=== PATIENT | female | born 1990 | race Caucasian/White ===

== ENCOUNTER 2019-02-22 07:35 | Outpatient (CLI) | payer BC ==
[2019-02-22] MEDS ORDERED: BARIUM SULFATE 340 GM ONE (10:51)
== END 2019-02-22 23:59 | disposition home or self-care (01) ==
LOC: RAD 07:35
DX: K30 Functional dyspepsia (principal); R14.0 Abdominal distension (gaseous); R68.81 Early satiety
CPT/HCPCS: Q9967